=== PATIENT | male | born 1960 | race Caucasian/White ===

== ENCOUNTER → 2019-03-13 | Outpatient (CLI) | payer OTHER ==
[2019-03-13 16:52] LABS: African American GFR (CKD) >90 (>60 ml/min/1.73 sqM); Anion Gap 7 mmol/L; Blood Urea Nitrogen 15 mg/dL (9-20); Carbon Dioxide 26 mmol/L (22-30); Chloride 111 mmol/L (98-107); Sodium 144 mmol/L (137-145)
[2019-03-13 17:10] LABS: Basophils # (A) 0.1 k/uL (0-0.2); Basophils % (A) 1 %; Eosinophils # (A) 0.2 k/uL (0-0.7); Eosinophils % (A) 3 %; HCT 42.2 % (39.0-53.0); HGB 13.5 gm/dL (13.0-17.5); Lymphocytes # (A) 0.9 k/uL (1.0-4.8); Lymphocytes % (A) 14 %; MCH 34.4 pg (25.0-35.0); MCHC 31.9 g/dL (31.0-37.0); MCV 107.9 fL (80.0-100.0); Macrocytosis Moderate; Mean Platelet Volume 7.9; Monocytes # (A) 0.4 k/uL (0-1.0); Monocytes % (A) 6 %; Neutrophils # (A) 5.2 k/uL (1.3-7.7); Neutrophils % (A) 76 %; Platelet Count 179 k/uL (150-450); RBC 3.91 m/uL (4.30-5.90); RDW 13.5 % (11.5-15.5); WBC 6.8 k/uL (3.8-10.6)
== END | disposition home or self-care (01) ==
LOC: LABPAT 16:08
PROVIDERS: ATTEND Surgery
DX: Z01.812 Encounter for preprocedural laboratory examination (principal); I74.3 Embolism and thrombosis of arteries of the lower extremities
CPT/HCPCS: 36415; 80051; 82565; 84520; 85025

== ENCOUNTER → 2019-03-23 | Day surgery (SDC) | payer OTHER ==
[2019-03-16 10:59] VITALS: BMI 23.5
[~2019-03-23] MED LIST: IOPAMIDOL-250 100ML BTL INTRAARTER ONE; LIDOCAINE 1% INJ 10MG/ML (20 ML MDV) SQ ONE; MIDAZOLAM (PF) 2 MG/2 ML VIAL IVP ONE; NICOTINE 21MG/24HR PATCH TRANSDERM STA; SODIUM CHLORIDE 0.9% 1,000 ML in EMPTY BAG 1 BAG IV ONE; fentaNYL (PF) 50 MCG/ML 2 ML AMP IV ONE
[2019-03-23 11:05] VITALS: TEMP 97.8
[2019-03-23 15:05] VITALS: RESP 18
--- NOTE | 2019-03-23 15:50 | IR ---
EXAMINATION TYPE: IR angio abdominal w runoff DATE OF EXAM: 03/23/2019 COMPARISON: NONE HISTORY: Fluoroscopy time. Fluoroscopy was provided to the referring clinician. 1.8 minutes of fluoroscopy provided.
--- NOTE | 2019-03-23 17:07 | P.OP ---
Date of Procedure: 03/23/19 Description of Procedure: Preoperative diagnosis: Disabling claudication of bilateral lower extremities with rest pain [place] classification 4 Postop diagnosis: Same plus Aortic occlusion Procedure: Aortogram with bilateral lower extremity runoffs via left brachial artery access under ultrasound guidance Surgeon: Gordon Anesthesia: Moderate sedation times 19 mins Estimated blood loss: 5cc Complications: none Condition: stable Findings: Aorta is patent to the renal arteries then abrupt occlusion with reconstitution at the femoral arteries bilaterally. Operative narrative: After written informed consent was obtained the patient all risks benefits competitions were described the patient is brought to the [facility] and laid in a supine position. The area of the left arm was prepped and draped in the usual sterile fashion. Local anesthesia with moderate sedation was performed with continuous pulse ox monitoring and EKG monitoring. Utilizing ultrasound the left brachial artery was visualized and shown to be patent without any significant plaque. Utilizing a multipurpose needle under ul trasound guidance the artery was accessed. Guidewire was placed followed by 5- [place] sheath. 035 Glidewire was then placed into the aorta followed by pigtail catheter. Angiogram was then obtained of the aorta, iliacs and femoral arteries. Once completed all guidewires, catheters and sheaths were removed and pressure was placed for hemostasis. Patient tolerated procedure well was sent to PACU for recovery
[2019-03-23 17:11] VITALS: BP 135/67; PULSE 54
== END ==
LOC: CATHCVL 10:32
PROVIDERS: ATTEND Surgery
DX: I70.223 Atherosclerosis of native arteries of extremities with rest pain, bilateral legs (principal); I70.0 Atherosclerosis of aorta; I10 Essential (primary) hypertension; F17.210 Nicotine dependence, cigarettes, uncomplicated; Z82.49 Family history of ischemic heart disease and other diseases of the circulatory system; Z79.891 Long term (current) use of opiate analgesic; Z79.51 Long term (current) use of inhaled steroids; Z79.899 Other long term (current) drug therapy
CPT/HCPCS: 36200; 75625; 75716; 76937; C1769 ×4; C1894; S4990; J2001; J3010; Q9966; J2250

== ENCOUNTER → 2019-05-18 | Outpatient (CLI) | payer OTHER ==
[2019-05-18 11:04] LABS: Basophils # (A) 0.1 k/uL (0-0.2); Basophils % (A) 1 %; Eosinophils # (A) 0.2 k/uL (0-0.7); Eosinophils % (A) 3 %; HCT 48.3 % (39.0-53.0); HGB 15.9 gm/dL (13.0-17.5); Lymphocytes # (A) 0.9 k/uL (1.0-4.8); Lymphocytes % (A) 15 %; MCH 35.5 pg (25.0-35.0); MCHC 32.9 g/dL (31.0-37.0); Macrocytosis Moderate; Mean Platelet Volume 7.4; Monocytes # (A) 0.4 k/uL (0-1.0); Monocytes % (A) 6 %; Neutrophils # (A) 4.4 k/uL (1.3-7.7); Neutrophils % (A) 72 %; Platelet Count 169 k/uL (150-450); RBC 4.47 m/uL (4.30-5.90); RDW 12.7 % (11.5-15.5)
[2019-05-18 11:17] LABS: African American GFR (CKD) >90 (>60 ml/min/1.73 sqM); Anion Gap 7 mmol/L; Blood Urea Nitrogen 11 mg/dL (9-20); Carbon Dioxide 29 mmol/L (22-30); Chloride 102 mmol/L (98-107); Potassium 4.9 mmol/L (3.5-5.1); Sodium 138 mmol/L (137-145)
== END | disposition home or self-care (01) ==
LOC: LABPAT 10:16
PROVIDERS: ATTEND Surgery
DX: Z01.812 Encounter for preprocedural laboratory examination (principal); I74.10 Embolism and thrombosis of unspecified parts of aorta
CPT/HCPCS: 36415; 80051; 82565; 84520; 85025

== ENCOUNTER 2019-05-25 06:44 | Inpatient (IN) | payer OTHER ==
[2019-05-21 13:06] VITALS: BMI 23.5
[~2019-05-25 06:44] MED LIST changes: +HYDROmorphone 0.5 MG/0.5 ML SYRINGE IVP PRN; -IOPAMIDOL-250 100ML BTL INTRAARTER ONE; -LIDOCAINE 1% INJ 10MG/ML (20 ML MDV) SQ ONE; -MIDAZOLAM (PF) 2 MG/2 ML VIAL IVP ONE; +MIDAZOLAM 2 MG/2 ML VIAL IV PRN; -NICOTINE 21MG/24HR PATCH TRANSDERM STA; +ONDANSETRON 4 MG/2 ML VIAL IVP ONE; +SCOPOLAMINE 1.5MG/72HR PATCH TRANSDERM ONE; -SODIUM CHLORIDE 0.9% 1,000 ML in EMPTY BAG 1 BAG IV ONE; -fentaNYL (PF) 50 MCG/ML 2 ML AMP IV ONE
[2019-05-25] MEDS: LACTATED RINGERS 1,000 ML IV SCH ×6 (07:00→23:37)
[2019-05-25] MEDS ORDERED: LIDOCAINE 1% 20 ML VIAL (10MG/ML) FOR IV START INTRADERMA ONE (07:00)
[2019-05-25] MEDS: DEXAMETHASONE SOD PHOSPHATE 10 MG/ML 1 ML VIAL IV ONE ×2 (07:05→15:59)
[2019-05-25 07:29] LABS: Prothrombin Time 10.7 sec (9.0-12.0)
--- NOTE | 2019-05-25 07:29 | P.GSHP ---
History of Present Illness H&P Date: 05/25/19 Chief Complaint: Bilateral lower extremity pain 59-year-old gentleman with history of peripheral arterial disease, claudication and rest pain with history of arterial Doppler demonstrating ABIs of less than 0.4 as well as an aortogram with runoff demonstrating aortic occlusion just distal to the renal arteries presents to the hospital for elective aortobifemoral bypass. He denies any fevers, chills, chest pain or shortness of breath. - Review of Systems All systems: negative (What is mentioned in the HPI past medical history) Past Medical History Past Medical History: COPD, Hypertension, Vascular Disorder Additional Past Medical History / Comment(s): hernia History of Any Multi-Drug Resistant Organisms: None Reported Past Surgical History: No Surgical Hx Reported Additional Past Anesthesia/Blood Transfusion Reaction / Comment(s): has never had anesthesia Smoking Status: Former smoker - Past Family History Mother Additional Family Medical History / Comment(s): varicose veins Medications and Allergies Home Medications Medication Instructions Recorded Confirmed Type Atenolol/Chlorthalidone 1 each PO 1200 03/16/19 05/25/19 History [Atenolol-Chlorthalidone 100-25] HYDROcodone/APAP 7.5-325MG [[place] 1 tab PO BID 03/16/19 05/25/19 History 7.5-325] Lisinopril [Zestril] 40 mg PO 1200 03/16/19 05/25/19 History Ondansetron [Zofran] 4 mg PO DAILY PRN 05/21/19 05/25/19 History Allergies Allergy/AdvReac Type Severity Reaction Status Date / Time No Known Allergies Allergy Verified 05/25/19 06:55 Surgical - Exam Vital Signs Temp Pulse Resp BP Pulse Ox 97.9 F 46 L 18 173/82 100 05/25/19 07:03 05/25/19 07:03 05/25/19 07:03 05/25/19 07:03 05/25/19 07:03 Nonpalpable femoral, popliteal, DP or PT pulses - General well developed, well nourished, moderate pain - Eyes PERRL, normal ocular movement - ENT normal pinna, normal nares - Respiratory clear to auscultation - Cardiovascular Rhythm: regular - Abdomen Abdomen: soft, non tender - Integumentary no rash - Neurologic normal coordination - Psychiatric oriented to time, oriented to person, oriented to place Assessment and Plan Assessment: #1 aortoiliac occlusion #2 severe peripheral arterial disease [place] classification 4 #3 tobacco abuse Plan: To the OR for aortobifemoral bypass.
[2019-05-25] MEDS ORDERED: NALBUPHINE 10 MG/ML (1 ML AMP) IV PRN (08:49)
[2019-05-25] MEDS ORDERED: NALOXONE 0.4 MG/ML 1 ML VIAL IV PRN (08:49)
--- NOTE | 2019-05-25 08:52 | P.ANPRN ---
Procedure Note - Anesthesia - Invasive Line Right Central Line Time Out Performed: Yes Date of Procedure: 05/25/19 Time of Procedure: 07:47 Location of Patient Procedure: PreOp Preparation: Sterile Prep, Sterile Dressing Ultrasound Used: Yes Purpose - Visualization and Identification of Vasculature: Yes Needle Guage: 18 Image Stored and Saved: Yes Narrative: Central line placement per sterile protocol utilized. Right Arterial Line Time Out Performed: Yes Date of Procedure: 05/25/19 Time of Procedure: 07:39 Location of Patient Procedure: PreOp Preparation: Sterile Prep, Sterile Dressing Arterial Line Location: Radial Ultrasound Used: No Purpose - Visualization and Identification of Vasculature: No Needle Guage: 20 Image Stored and Saved: No Narrative: Radial arterial line right side placed under sterile conditions
[2019-05-25] MEDS ORDERED: GELATIN SPONGE,ABSORB (LARGE) 1 EACH SPONGE TOPICAL ONE (09:31)
[2019-05-25] MEDS ORDERED: THROMBIN (BOVINE) 5,000 UNIT VIAL TOPICAL ONE ×5 (09:35→12:48)
[2019-05-25] MEDS ORDERED: LACTATED RINGERS 1,000 ML IV ONE ×6 (10:38→17:15)
[2019-05-25] MEDS ORDERED: GELATIN SPONGE,ABSORB (SMALL) 1 EACH SPONGE TOPICAL ONE ×2 (12:48)
[2019-05-25] MEDS: ROPIVACAINE 400 MG, HYDROMORPHONE (PF) 5 MG in SODIUM CHLORIDE 0.9% 170 ML EPIDURAL PRN (14:23)
--- NOTE | 2019-05-25 14:28 | P.OP ---
Description of Procedure: Preoperative diagnosis: [place] classification 4 with Aortoiliac occlusion Postoperative diagnosis: Same Procedure: Preoperative diagnosis: Postoperative diagnosis: Aortobifemoral artery bypass Surgeon: Gordon Mena.: [place] Anesthesia: GETA EBL: 1000 cc Transfusion: 700 cc cell saver IVF: See anesthesia records Urine output: The anesthesia records Complications: None Condition: stable with multiphasic DP and PT signals bilaterally Indication for procedure: 59-year-old gentleman who initially presented to the office secondary to lower extremity pain with ambulation and at rest underwent arterial Doppler demonstrating ABIs less than 0.4 bilaterally. On imaging aorta was occluded just distal to the renal arteries. Patient presents today for elective aortobifemoral bypass. Operative narrative: After written informed consent was obtained the patient all risks benefits and competitions were described the patient was brought to the operative suite and laid in a supine position. The area from the nipples to the toes were prepped and draped in usual sterile fashion after appropriate ane sthetic was performed per the anesthesiologist. A timeout was performed in normal fashion. Antibiotics were administered prior to incision. Oblique incisions at the bilateral groins were then created with a 10 blade scalpel and dissection was carried down to the common femoral sheath. The sheath was then incised and the common femoral, superficial femoral and profundus femoris arteries were dissected free and controlled with vessel loops. Once controlled attention was then placed to the abdominal incision. Midline incision was then created with a 10 blade scalpel from the xiphoid to the suprapubic region and dissection was carried down with electrocautery to the fascia fascia was then incised and the abdomen was entered once the peritoneum was incised. Abdomen was then interrogated. Liver was within normal limits without any signs of disease. Stomach was palpated and NG tube was in appropriate position. Small bowel was then placed in the right upper quadrant after the Omni retractor was positioned in normal fashion. The retroperitoneum was then exposed and the aorta was dissected free with electrocautery up to the renal vein. Renal vein was located and retracted cephalad to allow for dissection around the aorta just at the infrarenal aspect. Circumferential dissection was then carried around the aorta and a umbilical tape was placed. Continue dissection was then carried down to the bifurcation and both iliac arteries were located and dissected free and controlled with vessel loops. Dissection was then carried over the iliac arteries bilaterally just under the retroperitoneal reflection under the ureters bilaterally and umbilical tape was placed from the abdominal incision to the bilateral groin incisions. Patient was then administered heparin and followed with serial ACTs for appropriate heparinization. After ACT was greater than 200 the aorta was clamped at the infrarenal aspect and arteriotomy was created with 11 blade scalpel and extended with Pott Douglas scissors. A large amount thrombus was encountered which was removed from the aorta. Inflow was assessed and was pulsatile after removing thrombus from the juxtarenal aspect of the aorta. The aorta was then cut to allow for end to end anastomosis. A 16 x 8 mm [place] bifurcated graft was chosen and the aortic aspect was spatulated end to end anastomosis was created with 3-0 Prolene suture in a running fashion. Once completed and flow was released demonstrating good pulsatile flow within the graft. Gelfoam was then placed at the anastomosis. Both iliac limbs were then tied with the umbilical tape and pulled to each groin incision. Control was then obtained of the femoral arteries bilaterally and arteriotomy was created and extended with Pott Douglas scissors. Femoral endarterectomy was then performed removing large amount of plaque from the femoral arteries extending to the superficial femoral artery bilaterally. Once plaque was removed the area was irrigated with saline. Distal flaps were tacked with 7-0 Prolene suture to prevent any dissection. The graft was then spatulated and end-to-side anastomosis was created with 6-0 Prolene suture bilaterally. Prior to last sutures being placed the outflow was released demonstrating good back bleeding from the left superficial femoral and profundus arteries as well as the right superficial femoral and profundus arteries. Final sutures were then secured after flushing of the aortic graft. Hemostasis was assured with Gelfoam and thrombin. Once hemostatic incisions were then closed in a multilayer fashion. Attention was then placed back to the abdominal incision which was copiously irrigated with antibiotic solution. Hemostasis was assured wiGelfoam and thrombin as well as Tisseel. The existing aortic stump was closed with a 3-0 Prolene suture in a running fashion. The retroperitoneum was then closed with 2-0 Vicryl suture in a running fashion. The intra-abdominal contents were once again interrogated without any evidence of injury. The fascia was then closed with 2-0 PDS suture in a running fashion 2. The skin was closed with hussein. Skin was then cleansed and dressed with Prevena wound vacs. The patient tolerated the procedure well and had multiphasic signal at the DP and PT bilaterally. Patient was then sent to PACU for recovery.
[2019-05-25] MEDS ORDERED: PHENYLEPHRINE 40 MG in SODIUM CHLORIDE 0.9% 250 ML IV SCH (14:45)
[2019-05-25 15:50] LABS: Glucose,Whole Blood 140 mg/dL (75-99)
[2019-05-25] MEDS: ONDANSETRON 4 MG/2 ML VIAL IVP PRN (16:30)
[2019-05-25] MEDS ORDERED: NOREPINEPHRINE 8 MG in SODIUM CHLORIDE 0.9% 250 ML IV SCH (16:30)
--- NOTE | 2019-05-25 16:45 | P.CNPUL ---
History of Present Illness Consult date: 05/25/19 Requesting physician: Paramjit Leyva Reason for consult: other Chief complaint: Claudication, peripheral arterial disease History of present illness: This 59-year-old white male patient of Dr. Cervantes, with past history of COPD, hypertension, peripheral arterial disease, along history of smoking, patient carries a 45 years of smoking history up to 3 packs a day, currently cut back to half a pack daily, who has been experiencing pain and claudication in his lower extremities and was evaluated by vascular surgery. Return Doppler demonstrated aortic occlusion distal to the renal arteries, no surgical intervention was recommended. Today on 05/2019 patient presents for elective aorto bifemoral artery bypass by Dr. Leyva. Patient is seen in the postoperative period in the intensive care unit, he is awake and alert, in no acute distress, other than some mild to moderate nausea, denies any acute distress, no difficulty breathing, currently on 2 L of oxygen with a pulse ox of 99%, afebrile, sinus bradycardia with a rate of 49 BPM, and currently hypotensive with systolic in the 80s and diastolic in the 50s. Mid abdominal incision and bilateral groin incisions are clean dry and intact, covered with the surgical dressing, there is a wound VAC in place. Patient has a epidural catheter in place, and epidural in the form of ropivacaine and Dilaudid infusing. Review of Systems All systems: negative Constitutional: Denies chills, Denies fever Eyes: denies blurred vision, denies pain Ears, nose, mouth and throat: Denies headache, Denies sore throat Cardiovascular: Denies chest pain, Denies shortness of breath Respiratory: Denies cough Gastrointestinal: Denies abdominal pain, Denies diarrhea, Denies nausea, Denies vomiting Musculoskeletal: Denies myalgias Integumentary: Denies pruritus, Denies rash Neurological: Denies numbness, Denies weakness Psychiatric: Denies anxiety, Denies depression Endocrine: Denies fatigue, Denies weight change Past Medical History Past Medical History: COPD, Hypertension, Vascular Disorder Additional Past Medical History / Comment(s): hernia History of Any Multi-Drug Resistant Organisms: None Reported Past Surgical History: No Surgical Hx Reported Additional Past Anesthesia/Blood Transfusion Reaction / Comment(s): has never had anesthesia Smoking Status: Former smoker - Past Family History Mother Additional Family Medical History / Comment(s): varicose veins Medications and Allergies Home Medications Medication Instructions Recorded Confirmed Type Atenolol/Chlorthalidone 1 each PO 1200 03/16/19 05/25/19 History [Atenolol-Chlorthalidone 100-25] HYDROcodone/APAP 7.5-325MG [[place] 1 tab PO BID 03/16/19 05/25/19 History 7.5-325] Lisinopril [Zestril] 40 mg PO 1200 03/16/19 05/25/19 History Ondansetron [Zofran] 4 mg PO DAILY PRN 05/21/19 05/25/19 History Allergies Allergy/AdvReac Type Severity Reaction Status Date / Time No Known Allergies Allergy Verified 05/25/19 06:55 Physical Exam Vitals: Vital Signs Temp Pulse Pulse Resp BP BP Pulse Ox 05/25/19 15:18 49 L 16 103/56 98/52 99 05/25/19 15:03 45 L 16 113/60 103/55 100 05/25/19 14:48 56 L 16 108/58 107/60 98 05/25/19 14:33 66 16 94/62 82/50 98 05/25/19 14:18 97 F L 73 106/70 98 05/25/19 08:02 55 L 20 117/71 100 05/25/19 07:33 55 L 20 125/76 100 05/25/19 07:10 47 L 18 159/89 05/25/19 07:03 97.9 F 46 L 18 173/82 100 Intake and Output 05/25/19 05/25/19 05/25/19 06:59 14:59 22:59 Intake Total 4750 Output Total 1610 30 Balance 3140 -30 Intake: IV 4750 Output: Urine 410 30 Estimated Blood Loss 1200 Other: Weight 63.049 kg GENERAL EXAM: Alert, pleasant, 59-year-old white male, comfortable in no apparent distress. HEAD: Normocephalic/atraumatic. EYES: Normal reaction of pupils, equal size. Conjunctiva pink, sclera white. NOSE: Clear with pink turbinates. THROAT: No erythema or exudates. NECK: No masses, no JVD, no thyroid enlargement, no adenopathy. CHEST: No chest wall deformity. Symmetrical expansion. LUNGS: Equal air entry with no crackles, wheeze, rhonchi or dullness. CVS: Regular rate and rhythm, normal S1 and S2, no gallops, no murmurs, no rubs ABDOMEN: Soft, nontender. No hepatosplenomegaly, normal bowel sounds, no guarding or rigidity. Mid abdominal incision and bilateral groin incisions clean dry and intact, covered with surgical dressings, wound VAC is in place EXTREMITIES: No clubbing, no edema, no cyanosis, 2+ pulses and upper and lower extremities. MUSCULOSKELETAL: Muscle strength and tone normal. SPINE: No scoliosis or deformity SKIN: No rashes CENTRAL NERVOUS SYSTEM: Alert and oriented -3. No focal deficits, tone is normal in all 4 extremities. PSYCHIATRIC: Alert and oriented -3. Appropriate affect. Intact judgment and insight. Results - Laboratory Findings PT/INR, D-dimer PT 10.7 sec (9.0-12.0) 05/25/19 07:04 INR 1.0 (<1.2) 05/25/19 07:04 Abnormal lab findings: Abnormal Labs 05/25/19 15:48 POC Glucose (mg/dL) 140 H Assessment and Plan Plan: Assessment: #1. Severe peripheral arterial disease, with claudication status post aortobifemoral artery bypass, postoperative day 0 #2. Chronic and ongoing history of smoking, patient carries a 45 years of smoking history, up to 3 packs a day, currently down to half a pack a day #3. Essential hypertension #4. COPD Plan: We'll increase IV fluids to 75 ML per hour, may use levophed for blood pressure support. We will order Zofran for postoperative nausea. Close hemodynamic monitoring, patient in sinus mechanism, bradycardic, and hypotensive, but awake and alert, and clinically asymptomatic, urine output is adequate. He is nothing by mouth per vascular surgery, incisions clean dry and intact, distal pulses are intact. Denies any difficulty breathing. Antibiotics per vascular surgery recommendations. Epidural is in place for pain control. Patient requested nicotine patch. We'll obtain blood work in the morning. We will continue to closely follow I performed a history & physical examination of the patient and discussed their management with my nurse practitioner, Angela Barron. I reviewed the nurse practitioner's note and agree with the documented findings and plan of care. Lung sounds are positive for clear breath sounds. The findings and the impression was discussed with the patient. I attest to the documentation by the nurse practitioner. Time with Patient: Greater than 30
[2019-05-25 17:15] LABS: HCT 24.6 % (39.0-53.0); MCH 35.2 pg (25.0-35.0); MCHC 32.4 g/dL (31.0-37.0); MCV 108.8 fL (80.0-100.0); Macrocytosis Moderate; Mean Platelet Volume 7.5; Platelet Count 112 k/uL (150-450); RBC 2.27 m/uL (4.30-5.90); RDW 12.6 % (11.5-15.5); WBC 5.1 k/uL (3.8-10.6)
[2019-05-25 17:23] LABS: ALT 71 U/L (21-72); AST 58 U/L (17-59); African American GFR (CKD) >90 (>60 ml/min/1.73 sqM); Albumin 2.3 g/dL (3.5-5.0); Alkaline Phosphatase 22 U/L (38-126); Anion Gap 4 mmol/L; Blood Urea Nitrogen 14 mg/dL (9-20); Calcium 7.5 mg/dL (8.4-10.2); Carbon Dioxide 21 mmol/L (22-30); Chloride 113 mmol/L (98-107); Glucose 161 mg/dL (74-99); Magnesium 1.2 mg/dL (1.6-2.3); Potassium 4.2 mmol/L (3.5-5.1); Sodium 138 mmol/L (137-145); Total Protein 4.3 g/dL (6.3-8.2)
[2019-05-25] MEDS: DOPamine DRIP 800 MG in WATER FOR INJECTION 1 250ML.BAG IV SCH (17:24)
[2019-05-25] MEDS: MAGNESIUM SULFATE-D5W PMX 1 GM in DEXTROSE/WATER 1 100ML.BAG IVPB SCH ×3 (18:27→23:41)
[2019-05-26] MEDS: ONDANSETRON 4 MG/2 ML VIAL IVP PRN ×2 (03:09→12:57)
[2019-05-26 06:11] LABS: HCT 35.9 % (39.0-53.0); MCH 36.4 pg (25.0-35.0); MCHC 34.3 g/dL (31.0-37.0); MCV 106.1 fL (80.0-100.0); Macrocytosis Slight; Mean Platelet Volume 7.6; Platelet Count 152 k/uL (150-450); RBC 3.38 m/uL (4.30-5.90); RDW 12.5 % (11.5-15.5); WBC 8.3 k/uL (3.8-10.6)
[2019-05-26 06:23] LABS: African American GFR (CKD) >90 (>60 ml/min/1.73 sqM); Anion Gap 6 mmol/L; Blood Urea Nitrogen 15 mg/dL (9-20); Calcium 8.4 mg/dL (8.4-10.2); Carbon Dioxide 27 mmol/L (22-30); Chloride 106 mmol/L (98-107); Glucose 99 mg/dL (74-99); Magnesium 1.8 mg/dL (1.6-2.3); Potassium 4.3 mmol/L (3.5-5.1); Sodium 139 mmol/L (137-145)
[2019-05-26] MEDS ORDERED: Magnesium Replacement Protocol 1 EACH MISC MISCELLANE PRN (06:38)
[2019-05-26 07:00] LABS: HGB 12.3 gm/dL (13.0-17.5)
[2019-05-26] MEDS: MAGNESIUM SULFATE-D5W PMX 1 GM in DEXTROSE/WATER 1 100ML.BAG IVPB SCH ×2 (07:01→10:06)
[2019-05-26] MEDS: LACTATED RINGERS 1,000 ML IV SCH ×2 (07:06→23:59)
--- NOTE | 2019-05-26 09:22 | P.PN ---
Subjective Progress Note Date: 05/26/19 This 59-year-old white male patient of Dr. Cervantes, with past history of COPD, hypertension, peripheral arterial disease, along history of smoking, patient carries a 45 years of smoking history up to 3 packs a day, currently cut back to half a pack daily, who has been experiencing pain and claudication in his lower extremities and was evaluated by vascular surgery. Return Doppler demonstrated aortic occlusion distal to the renal arteries, no surgical intervention was recommended. Today on 05/2019 patient presents for elective aorto bifemoral artery bypass by Dr. Leyva. Patient is seen in the postoperative period in the intensive care unit, he is awake and alert, in no acute distress, other than some mild to moderate nausea, denies any acute distress, no difficulty breathing, currently on 2 L of oxygen with a pulse ox of 99%, afebrile, sinus bradycardia with a rate of 49 BPM, and currently hypotensive with systolic in the 80s and diastolic in the 50s. Mid abdominal incision and bilateral groin incisions are clean dry and intact, covered with the surgical dressing, there is a wound VAC in place. Patient has a epidural catheter in place, and epidural in the form of ropivacaine and Dilaudid infusing. On today's evaluation of 05/26/2019 the patient is looking very well. He underwent aortobifem bypass surgery and the patient has currently postop day #1. Hemodynamically stable. The patient was having sinus bradycardia yesterday and his heart rate at one point dropped as low as low 40s. At that point, I put him on a dopamine infusion which is currently running at 8 g per KG per minute. His most recent BP is 95/39. His heart rate is in the mid 60s and he is sinus. His extremities are warm. He has Doppler signals in all 4 extremities bilate rally. No significant numbness or pain or tingling in his legs bilaterally. Abdominal wound is dry clean and intact. The patient is on room air oxygen. No significant cough or sputum production or chest tightness or wheezing. He has an epidural catheter with Dilaudid and bupivacaine which is running at 80 mL an hour. Feeling slightly nauseous. However, he is requesting for food. He has a Cordis in his right IJ. Objective - Vital Signs Vital signs: Vital Signs Temp 97.5 F L 11/09/19 08:00 Pulse 65 05/26/19 08:15 Resp 19 05/26/19 08:15 BP 144/73 05/26/19 08:15 Pulse Ox 93 L 05/26/19 08:15 Intake & Output 05/25/19 05/26/19 05/26/19 18:59 06:59 18:59 Intake Total 5975.551 1993.899 263.55 Output Total 1790 625 100 Balance 4185.551 1368.899 163.55 Weight 63.049 kg 72.4 kg Intake: IV 4756 1746 125 .9 a line 6 21 Lactated Ringers 1,000 ml 1375 125 @ 125 mls/hr IV .Q8H TRAE Rx#:[id number] Magnesium Sulfate-D5w Pmx 300 1 gm In Dextrose/Water 1 100ml.bag @ 100 mls/hr IVPB Q1H TRAE Rx#: [id number] ceFAZolin 2 gm In Sodium 50 Chloride 0.9% 50 ml @ 100 mls/hr IVPB Q8HR TRAE Rx# :[id number] Intake, IV Titration 1219.551 247.899 138.55 Amount DOPamine DRIP 800 mg In 18.128 72.899 138.55 Water For Injection 1 250ml.bag @ 5 MCG/KG/MIN 5.911 mls/hr IV .Q24H TRAE Rx#:[id number] Lactated Ringers 1,000 ml 150 75 @ 125 mls/hr IV .Q8H TRAE Rx#:[id number] Lactated Ringers 1,000 ml 1000 @ 999 mls/hr IV .Q1H1M ONE Rx#:[id number] Magnesium Sulfate-D5w Pmx 100 1 gm In Dextrose/Water 1 100ml.bag @ 100 mls/hr IVPB Q1H TRAE Rx#: [id number] Norepinephrine 8 mg In 1.423 Sodium Chloride 0.9% 250 ml @ 0.05 MCG/KG/MIN 6.1 mls/hr IV .Q24H TRAE Rx#: [id number] ceFAZolin 2 gm In Sodium 50 Chloride 0.9% 50 ml @ 100 mls/hr IVPB Q8HR TRAE Rx# :[id number] Output: Urine 590 625 100 Estimated Blood Loss 1200 Other: Voiding Method Indwelling Catheter Indwelling Catheter ABP, PAP, CO, CI - Last Documented Arterial Blood Pressure 108/55 - Exam GENERAL EXAM: Alert, pleasant, 59-year-old white male, comfortable in no apparent distress. HEAD: Normocephalic/atraumatic. EYES: Normal reaction of pupils, equal size. Conjunctiva pink, sclera white. NOSE: Clear with pink turbinates. THROAT: No erythema or exudates. NECK: No masses, no JVD, no thyroid enlargement, no adenopathy. CHEST: No chest wall deformity. Symmetrical expansion. LUNGS: Equal air entry with no crackles, wheeze, rhonchi or dullness. CVS: Regular rate and rhythm, normal S1 and S2, no gallops, no murmurs, no rubs ABDOMEN: Soft, nontender. No hepatosplenomegaly, normal bowel sounds, no guarding or rigidity. Mid abdominal incision and bilateral groin incisions clean dry and intact, covered with surgical dressings, wound VAC is in place EXTREMITIES: No clubbing, no edema, no cyanosis, 2+ pulses and upper and lower extremities. MUSCULOSKELETAL: Muscle strength and tone normal. SPINE: No scoliosis or deformity SKIN: No rashes CENTRAL NERVOUS SYSTEM: Alert and oriented -3. No focal deficits, tone is normal in all 4 extremities. PSYCHIATRIC: Alert and oriented -3. Appropriate affect. Intact judgment and insight. - Labs CBC & Chem 7: 05/26/19 05:46 05/26/19 05:46 Labs: Abnormal Lab Results - Last 24 Hours (Table) 05/25/19 05/25/19 05/25/19 Range/Units 15:48 17:00 17:00 RBC 2.27 L (4.30-5.90) m/uL Hgb 8.0 L D (13.0-17.5) gm/dL Hct 24.6 L (39.0-53.0) % MCV 108.8 H (80.0-100.0) fL MCH 35.2 H (25.0-35.0) pg Plt Count 112 L (150-450) k/uL Chloride 113 H (98-107) mmol/L Carbon Dioxide 21 L (22-30) mmol/L Glucose 161 H (74-99) mg/dL POC Glucose (mg/dL) 140 H (75-99) mg/dL Calcium 7.5 L (8.4-10.2) mg/dL Magnesium 1.2 L (1.6-2.3) mg/dL Alkaline Phosphatase 22 L (38-126) U/L Total Protein 4.3 L (6.3-8.2) g/dL Albumin 2.3 L (3.5-5.0) g/dL 05/26/19 Range/Units 05:46 RBC 3.38 L (4.30-5.90) m/uL Hgb 12.3 L D (13.0-17.5) gm/dL Hct 35.9 L (39.0-53.0) % MCV 106.1 H (80.0-100.0) fL MCH 36.4 H (25.0-35.0) pg Plt Count (150-450) k/uL Chloride (98-107) mmol/L Carbon Dioxide (22-30) mmol/L Glucose (74-99) mg/dL POC Glucose (mg/dL) (75-99) mg/dL Calcium (8.4-10.2) mg/dL Magnesium (1.6-2.3) mg/dL Alkaline Phosphatase (38-126) U/L Total Protein (6.3-8.2) g/dL Albumin (3.5-5.0) g/dL Assessment and Plan Plan: #1. Severe peripheral arterial disease, with claudication status post aortobifemoral artery bypass, postoperative day 1 #2. Chronic and ongoing history of smoking, patient carries a 45 years of smoking history, up to 3 packs a day, currently down to half a pack a day #3. Essential hypertension #4. COPD #5 sinus bradycardia currently on dopamine which also has assisted with his heart rate and blood pressure. Plan Patient is recovering extremely well. Surgical wound site is dry clean and intact. There is adequate Doppler signals in lower extremities bilaterally and there are no ischemic changes. Probably is some palpable pulses on and off that can be felt in his feet bilaterally. He is hemodynamically stable. Dopamine will be weaned off slowly. His sinus bradycardia has recovered. BP is under good control. He is receiving IV fluids at the rate of 125 mL an hour. He has adequate urine output. No altered mentation. No chest pain. No other significant events overnight. We'll continue to follow. Epidural management
--- NOTE | 2019-05-26 09:29 | P.PN ---
Progress Note - Text Progress Note Date: 05/26/19 Patient without complaints. Pain controlled. Denies leg weakness. Denies headache. Epidural @ 8 ml/hr VSS Back - epidural site clean and dry A/P POD #1 s/p aortobifemoral bypass - doing well
[2019-05-26] MEDS: NICOTINE 21MG/24HR PATCH TRANSDERM SCH (10:06)
[2019-05-26] MEDS: PANTOPRAZOLE 40 MG/10 ML VIAL IVP SCH (10:06)
[2019-05-26] MEDS: DOPamine DRIP 800 MG in WATER FOR INJECTION 1 250ML.BAG IV SCH (10:08)
[2019-05-26] MEDS: ROPIVACAINE 400 MG, HYDROMORPHONE (PF) 5 MG in SODIUM CHLORIDE 0.9% 170 ML EPIDURAL PRN (11:31)
[2019-05-26] MEDS: CHLORTHALIDONE 25 MG TAB PO SCH (12:56)
[2019-05-26] MEDS: LISINOPRIL 20 MG TAB PO SCH (12:56)
[2019-05-26] MEDS: ATENOLOL 50 MG TAB PO SCH (12:56)
--- NOTE | 2019-05-26 13:41 | PN ---
PROGRESS NOTE DATE OF SERVICE: 05/26/2019 CHIEF COMPLAINT: Aortoiliac occlusive disease. HISTORY OF PRESENT ILLNESS: This gentleman is doing well postoperatively. He has some discomfort, but very little. He is not having any chest pain, shortness of breath, nausea, etc. PHYSICAL EXAM: Head ears, eyes, nose, mouth, and throat are normal. Breath sounds are heard on both sides. Cardiac exam is normal and vital signs are normal. Dressing is dry. IMPRESSION: 1. Status post aortofemoral bypass. 2. Atherosclerotic cardiovascular disease. 3. Hypertension. 4. Chronic obstructive pulmonary disease. PLAN: No change in program and follow with vascular surgery. MMODL / IJN: [id number] /
--- NOTE | 2019-05-26 17:26 | CONS ---
CONSULTATION CHIEF COMPLAINT: PVOD. HISTORY OF PRESENT ILLNESS: This is another admission for this 59-year-old white male who is a very heavy smoker and has been identified as having distal aortic occlusive disease and is in for an elective aortofemoral bypass. REVIEW OF SYSTEMS: He has had no TIAs, CVAs, change in vision or hearing, cough, hemoptysis, etc. He does have COPD. He has a history of hypertension but no coronary artery disease. He has had no palpitations, syncope, angina, murmurs, rheumatic fever, etc. He has had no abdominal pain, nausea, vomiting, hematemesis, melena, hematochezia, jaundice, cirrhosis, renal failure, hematuria, frequency, urgency, dysuria, incontinence, BPH, nocturia, diabetes, etc. Past medical history, family history and personal and social histories reveal that he continues to smoke heavily and abuses alcohol as well. ALLERGIES: Not allergic to any medication. He has been on aspirin 81 mg a day, BuSpar 5 mg t.i.d. p.r.n., Vicodin 7.5 mg t.i.d. p.r.n., zolpidem 5 mg HS p.r.n., lisinopril 40 once a day, Qvar 80 one puff twice a day, Tenoretic 100/25 once a day, transderm nicotine patch, ibuprofen 800 mg q.i.d. p.r.n., omeprazole 20 mg once a day, vitamin D. The remainder of his history is unremarkable. PHYSICAL EXAMINATION: Blood pressure 120/80, pulse is 68 and regular, respirations 16 and he is afebrile. In general, he appeared to be slender and older than his stated age. Head, ears, eyes, nose, mouth, and throat were normal and carotids normal. Neck veins are not distended. Breath sounds are heard on both sides. He did have an increased AP diameter. Cardiac exam demonstrated normal sinus rhythm with no murmurs or extra sounds. Abdomen is soft and nontender without any masses or visceromegaly. Extremities were normal except for coolness to the lower legs and feet. Neurologically he is intact. IMPRESSION: 1. Aortoiliac occlusive disease. 2. Atherosclerotic cardiovascular disease. 3. Hypertension. 4. Chronic obstructive pulmonary disease. RECOMMENDATIONS: None. MMODL / IJN: [id number] /
--- NOTE | 2019-05-26 18:26 | P.PN ---
Subjective Progress Note Date: 05/26/19 Principal diagnosis: Aortic occlusion status post aortobifem bypass Patient seen and examined the bedside. Doing well overnight. His nausea has improved. He denies any pain in his lower extremities and states his discomfort in his toes has resolved. He denies any fevers, chills, chest pain or shortness of breath. He did have a bout of bradycardia which he was treated with dopamine. Currently he is doing well and his heart rate is in the 60s. Objective - Vital Signs Vital signs: Vital Signs Temp 98.2 F 05/26/19 16:00 Pulse 65 05/26/19 17:00 Resp 20 05/26/19 17:00 BP 100/60 05/26/19 17:00 Pulse Ox 92 L 05/26/19 17:00 Intake & Output 05/25/19 05/26/19 05/26/19 18:59 06:59 18:59 Intake Total 5975.551 6850.903 4441.148 Output Total 1790 625 620 Balance 4185.551 3938.980 8163.148 Weight 63.049 kg 72.4 kg Intake: IV 4756 1746 1475 .9 a line 6 21 Lactated Ringers 1,000 ml 1375 1375 @ 125 mls/hr IV .Q8H [facility] Rx#:[id number] Magnesium Sulfate-D5w Pmx 300 100 1 gm In Dextrose/Water 1 100ml.bag @ 100 mls/hr IVPB Q1H [facility] Rx#: [id number] ceFAZolin 2 gm In Sodium 50 Chloride 0.9% 50 ml @ 100 mls/hr IVPB Q8HR [facility] Rx# :[id number] Intake, IV Titration 1219.551 247.899 276.148 Amount DOPamine DRIP 800 mg In 18.128 72.899 214.681 Water For Injection 1 250ml.bag @ 5 MCG/KG/MIN 5.911 mls/hr IV .Q24H [facility] Rx#:[id number] Lactated Ringers 1,000 ml 150 75 @ 125 mls/hr IV .Q8H [facility] Rx#:[id number] Lactated Ringers 1,000 ml 1000 @ 999 mls/hr IV .Q1H1M ONE Rx#:[id number] Magnesium Sulfate-D5w Pmx 100 1 gm In Dextrose/Water 1 100ml.bag @ 100 mls/hr IVPB Q1H [facility] Rx#: [id number] Norepinephrine 8 mg In 1.423 Sodium Chloride 0.9% 250 ml @ 0.05 MCG/KG/MIN 6.1 mls/hr IV .Q24H [facility] Rx#: [id number] Ropivacaine 400 mg 61.467 Hydromorphone (Pf) 5 mg In Sodium Chloride 0.9% 170 ml @ Per Protocol EPIDURAL .Q0M PRN Rx#: [id number] ceFAZolin 2 gm In Sodium 50 Chloride 0.9% 50 ml @ 100 mls/hr IVPB Q8HR [facility] Rx# :[id number] Output: Urine 590 625 620 Estimated Blood Loss 1200 Other: Voiding Method Indwelling Catheter Indwelling Catheter Indwelling Catheter ABP, PAP, CO, CI - Last Documented Arterial Blood Pressure 108/55 - Exam Incision sites with prevena wound vacs in place. Palpable PT pulses. Multiphasic DP and PT signals. Lower extremities are warm. Minimal tenderness to palpation in the abdomen. - Labs CBC & Chem 7: 05/26/19 05:46 05/26/19 05:46 Labs: Abnormal Lab Results - Last 24 Hours (Table) 05/26/19 Range/Units 05:46 RBC 3.38 L (4.30-5.90) m/uL Hgb 12.3 L D (13.0-17.5) gm/dL Hct 35.9 L (39.0-53.0) % MCV 106.1 H (80.0-100.0) fL MCH 36.4 H (25.0-35.0) pg Assessment and Plan Assessment: #1 aortoiliac occlusion postop day 1 Aortobifemoral artery bypass #2 severe peripheral arterial disease Wolfe classification 4 #3 tobacco abuse #4 bradycardia resolved Plan: Continue current pain management. Increase activity patient is okay to transfer to the chair. Continue epidural catheter at this time. He is okay to start clear liquids and advance diet tomorrow.
[2019-05-26] MEDS: ALBUTEROL NEBULIZED 2.5 MG/3 ML INHALATION SCH (19:38)
[2019-05-27 05:46] LABS: Basophils % (A) 0 %; Eosinophils % (A) 1 %; HGB 10.2 gm/dL (13.0-17.5); Lymphocytes # (A) 0.7 k/uL (1.0-4.8); Lymphocytes % (A) 12 %; MCH 35.1 pg (25.0-35.0); MCHC 32.9 g/dL (31.0-37.0); MCV 106.9 fL (80.0-100.0); Macrocytosis Moderate; Mean Platelet Volume 7.4; Monocytes # (A) 0.3 k/uL (0-1.0); Monocytes % (A) 5 %; Neutrophils # (A) 4.9 k/uL (1.3-7.7); Neutrophils % (A) 80 %; Platelet Count 123 k/uL (150-450); RDW 12.5 % (11.5-15.5); WBC 6.1 k/uL (3.8-10.6)
[2019-05-27 05:57] LABS: African American GFR (CKD) >90 (>60 ml/min/1.73 sqM); Anion Gap 3 mmol/L; Blood Urea Nitrogen 13 mg/dL (9-20); Calcium 7.8 mg/dL (8.4-10.2); Carbon Dioxide 27 mmol/L (22-30); Chloride 104 mmol/L (98-107); Glucose 84 mg/dL (74-99); Magnesium 1.7 mg/dL (1.6-2.3); Potassium 4.2 mmol/L (3.5-5.1); Sodium 134 mmol/L (137-145)
[2019-05-27] MEDS ORDERED: SODIUM CHLORIDE 0.65% NASAL SPRAY 44 ML BTL NASAL PRN (06:42)
[2019-05-27] MEDS: LACTATED RINGERS 1,000 ML IV SCH ×2 (07:07→07:16)
[2019-05-27] MEDS: MAGNESIUM SULFATE-D5W PMX 1 GM in DEXTROSE/WATER 1 100ML.BAG IVPB SCH ×2 (07:08→10:54)
[2019-05-27] MEDS: ALBUTEROL NEBULIZED 2.5 MG/3 ML INHALATION SCH ×3 (07:44→20:42)
--- NOTE | 2019-05-27 08:15 | P.PN ---
Subjective Progress Note Date: 05/27/19 This 59-year-old white male patient of Dr. Cervantes, with past history of COPD, hypertension, peripheral arterial disease, along history of smoking, patient carries a 45 years of smoking history up to 3 packs a day, currently cut back to half a pack daily, who has been experiencing pain and claudication in his lower extremities and was evaluated by vascular surgery. Return Doppler demonstrated aortic occlusion distal to the renal arteries, no surgical intervention was recommended. Today on 05/2019 patient presents for elective aorto bifemoral artery bypass by Dr. Leyva. Patient is seen in the postoperative period in the intensive care unit, he is awake and alert, in no acute distress, other than some mild to moderate nausea, denies any acute distress, no difficulty breathing, currently on 2 L of oxygen with a pulse ox of 99%, afebrile, sinus bradycardia with a rate of 49 BPM, and currently hypotensive with systolic in the 80s and diastolic in the 50s. Mid abdominal incision and bilateral groin incisions are clean dry and intact, covered with the surgical dressing, there is a wound VAC in place. Patient has a epidural catheter in place, and epidural in the form of ropivacaine and Dilaudid infusing. On today's evaluation of 05/26/2019 the patient is looking very well. He underwent aortobifem bypass surgery and the patient has currently postop day #1. Hemodynamically stable. The patient was having sinus bradycardia yesterday and his heart rate at one point dropped as low as low 40s. At that point, I put him on a dopamine infusion which is currently running at 8 g per KG per minute. His most recent BP is 95/39. His heart rate is in the mid 60s and he is sinus. His extremities are warm. He has Doppler signals in all 4 extremities bilate rally. No significant numbness or pain or tingling in his legs bilaterally. Abdominal wound is dry clean and intact. The patient is on room air oxygen. No significant cough or sputum production or chest tightness or wheezing. He has an epidural catheter with Dilaudid and bupivacaine which is running at 80 mL an hour. Feeling slightly nauseous. However, he is requesting for food. He has a Cordis in his right IJ. On today's evaluation of 05/27/2019, the patient has no specific complaints. The blood pressure is under good control. The patient is receiving lactated Ringer at the rate of 1 25 mL an hour. Heart is a sinus and it's in the mid 70s. The patient was taken off the dopamine since midnight. Adequate urine output. Adequate pulses in lower extremities in terms of Doppler signal and some palpable pulses can be also felt. Abdomen is soft. There are bowel sounds. He is passing some gas. No bowel movement yet. He has a congested cough. Limited amount of sputum production. He is on oxygen at 2 L and is pulse oxing 94%. No other significant events overnight. No abdominal pain. Epidural is still running at 6 cc an hour. Objective - Vital Signs Vital signs: Vital Signs Temp 99 F 05/27/19 04:00 Pulse 66 05/27/19 07:55 Resp 18 05/27/19 07:00 BP 106/67 05/27/19 07:00 Pulse Ox 97 05/27/19 07:00 Intake & Output 05/26/19 05/27/19 05/27/19 18:59 06:59 18:59 Intake Total 2061.148 1404.278 250 Output Total 730 1465 120 Balance 1331.148 -60.722 130 Weight 72.8 kg Intake: IV 1725 1375 250 Lactated Ringers 1,000 ml 1625 1375 250 @ 125 mls/hr IV .Q8H [facility] Rx#:[id number] Magnesium Sulfate-D5w Pmx 100 1 gm In Dextrose/Water 1 100ml.bag @ 100 mls/hr IVPB Q1H [facility] Rx#: [id number] Intake, IV Titration 276.148 29.278 Amount DOPamine DRIP 800 mg In 214.681 29.278 Water For Injection 1 250ml.bag @ 5 MCG/KG/MIN 5.911 mls/hr IV .Q24H [facility] Rx#:[id number] Ropivacaine 400 mg 61.467 Hydromorphone (Pf) 5 mg In Sodium Chloride 0.9% 170 ml @ Per Protocol EPIDURAL .Q0M PRN Rx#: [id number] Oral 60 Output: Urine 730 1465 120 Other: Voiding Method Indwelling Catheter Indwelling Catheter ABP, PAP, CO, CI - Last Documented Arterial Blood Pressure 108/55 - Exam GENERAL EXAM: Alert, pleasant, 59-year-old white male, comfortable in no apparent distress. HEAD: Normocephalic/atraumatic. EYES: Normal reaction of pupils, equal size. Conjunctiva pink, sclera white. NOSE: Clear with pink turbinates. THROAT: No erythema or exudates. NECK: No masses, no JVD, no thyroid enlargement, no adenopathy. CHEST: No chest wall deformity. Symmetrical expansion. LUNGS: Equal air entry with no crackles, wheeze, rhonchi or dullness. CVS: Regular rate and rhythm, normal S1 and S2, no gallops, no murmurs, no rubs ABDOMEN: Soft, nontender. No hepatosplenomegaly, normal bowel sounds, no guarding or rigidity. Mid abdominal incision and bilateral groin incisions clean dry and intact, covered with surgical dressings, wound VAC is in place EXTREMITIES: No clubbing, no edema, no cyanosis, 2+ pulses and upper and lower extremities. MUSCULOSKELETAL: Muscle strength and tone normal. SPINE: No scoliosis or deformity SKIN: No rashes CENTRAL NERVOUS SYSTEM: Alert and oriented -3. No focal deficits, tone is normal in all 4 extremities. PSYCHIATRIC: Alert and oriented -3. Appropriate affect. Intact judgment and insight. - Labs CBC & Chem 7: 05/27/19 04:28 05/27/19 04:28 Labs: Abnormal Lab Results - Last 24 Hours (Table) 05/27/19 05/27/19 Range/Units 04:28 04:28 RBC 2.90 L (4.30-5.90) m/uL Hgb 10.2 L (13.0-17.5) gm/dL Hct 31.0 L (39.0-53.0) % MCV 106.9 H (80.0-100.0) fL MCH 35.1 H (25.0-35.0) pg Plt Count 123 L (150-450) k/uL Lymphocytes # 0.7 L (1.0-4.8) k/uL Sodium 134 L (137-145) mmol/L Calcium 7.8 L (8.4-10.2) mg/dL Assessment and Plan Plan: #1. Severe peripheral arterial disease, with claudication status post aortobifemoral artery bypass, postoperative day 2. The patient has adequate pulses in the lower extremities obtained by Doppler signal and there are weak but they're palpable. He has clear abdominal wound. Is passing flatus. I think should be able to tolerate liquid diet to be advanced gradually. The patient is also off dopamine. #2. Chronic and ongoing history of smoking, patient carries a 45 years of smoking history, up to 3 packs a day, currently down to half a pack a day #3. Essential hypertension #4. COPD #5 sinus bradycardia currently on dopamine which also has assisted with his heart rate and blood pressure. The patient's outside the blood pressure improved and currently is off dopamine. The sinus bradycardia and hypotension as recovers. Plan Patient is recovering extremely well. Surgical wound site is dry clean and intact. There is adequate Doppler signals in lower extremities bilaterally and there are no ischemic changes. There are also some weak palpable pulses. Often this patient clear liquid diet. Continue using incentive spirometer. The patient is off dopamine. Cut down the IV fluids to 75 mL an hour. We'll co ntinue to follow. Vascular surgery is on the case. He will be sitting up on a chair. We'll continue to follow.
--- NOTE | 2019-05-27 08:22 | P.PN ---
Progress Note - Text Progress Note Date: 05/27/19 Patient without complaints. Pain controlled. Denies leg weakness. Denies headache. Epidural @ 8 ml/hr VSS Back - epidural site clean and dry A/P POD #2 s/p aortobifemoral bypass - doing well
--- NOTE | 2019-05-27 10:08 | P.PN ---
Subjective Progress Note Date: 05/27/19 Patient seen and examined. Overall doing well. No complaints. Abdominal pain is controlled. No real nausea, having some phlegm. Passing flatus. Legs feel better, dopamine has been off since last night at midnight Objective - Vital Signs Vital signs: Vital Signs Temp 98.6 F 05/27/19 08:00 Pulse 75 05/27/19 09:00 Resp 13 05/27/19 09:00 BP 104/62 05/27/19 09:00 Pulse Ox 93 L 05/27/19 09:00 Intake & Output 05/26/19 05/27/19 05/27/19 18:59 06:59 18:59 Intake Total 2061.148 1404.278 250 Output Total 730 1465 120 Balance 1331.148 -60.722 130 Weight 72.8 kg Intake: IV 1725 1375 250 Lactated Ringers 1,000 ml 1625 1375 250 @ 125 mls/hr IV .Q8H [facility] Rx#:[id number] Magnesium Sulfate-D5w Pmx 100 1 gm In Dextrose/Water 1 100ml.bag @ 100 mls/hr IVPB Q1H [facility] Rx#: [id number] Intake, IV Titration 276.148 29.278 Amount DOPamine DRIP 800 mg In 214.681 29.278 Water For Injection 1 250ml.bag @ 5 MCG/KG/MIN 5.911 mls/hr IV .Q24H [facility] Rx#:[id number] Ropivacaine 400 mg 61.467 Hydromorphone (Pf) 5 mg In Sodium Chloride 0.9% 170 ml @ Per Protocol EPIDURAL .Q0M [facility] Rx#: [id number] Oral 60 Output: Urine 730 1465 120 Other: Voiding Method Indwelling Catheter Indwelling Catheter Indwelling Catheter ABP, PAP, CO, CI - Last Documented Arterial Blood Pressure 108/55 - Exam Genitals a pleasant cooperative male in no acute distress. HEENT is normocephalic, atraumatic, glasses, heart is regular in rate and rhythm. Lungs are clear bilaterally. Abdomen soft, nontender nondistended. Incisional wound VAC intact. Extremities are warm and dry. Palpable DP and PT on the right. Palpable DP and weakly palpable PT on the left. Motor sensory intact - Labs CBC & Chem 7: 05/27/19 04:28 05/27/19 04:28 Labs: Abnormal Lab Results - Last 24 Hours (Table) 05/27/19 05/27/19 Range/Units 04:28 04:28 RBC 2.90 L (4.30-5.90) m/uL Hgb 10.2 L (13.0-17.5) gm/dL Hct 31.0 L (39.0-53.0) % MCV 106.9 H (80.0-100.0) fL MCH 35.1 H (25.0-35.0) pg Plt Count 123 L (150-450) k/uL Lymphocytes # 0.7 L (1.0-4.8) k/uL Sodium 134 L (137-145) mmol/L Calcium 7.8 L (8.4-10.2) mg/dL Assessment and Plan Assessment: #1 postop aortobifemoral bypass #2 tobacco abuse #3 bradycardiaresolved, now off dopamine Plan: At this point the patient appears to be doing well. We will continue his epidural for 1 more day. We will get him up to the chair as he is able. We'll continue the [place] catheter until the epidural is removed. He may begin a clear liquid diet today and advance as tolerated.
[2019-05-27] MEDS: PANTOPRAZOLE 40 MG/10 ML VIAL IVP SCH (10:55)
[2019-05-27] MEDS: NICOTINE 21MG/24HR PATCH TRANSDERM SCH (10:55)
[2019-05-27] MEDS: CHLORTHALIDONE 25 MG TAB PO SCH (14:53)
[2019-05-27] MEDS: LISINOPRIL 20 MG TAB PO SCH (14:53)
[2019-05-27] MEDS: ATENOLOL 50 MG TAB PO SCH (14:54)
--- NOTE | 2019-05-27 21:00 | PN ---
PROGRESS NOTE CHIEF COMPLAINT: Status post aortofemoral. HISTORY OF PRESENT ILLNESS: This gentleman is doing well. He has had no shortness of breath, chills, fever, chest pain, etc. His blood pressure has been well controlled and, at times, low. PHYSICAL EXAMINATION: He is awake and alert. Chest is clear. Cardiac exam is normal and dressings are dry. There is apparently a problem with his wound VAC. Extremities are normal and warm. IMPRESSION: 1. Status post aortofemoral bypass. 2. Chronic obstructive pulmonary disease. PLAN: No change in his program. He seems to be doing well. His beta gennaro will be reinstituted. MMODL / IJN: [id number] /
[2019-05-28] MEDS: LACTATED RINGERS 1,000 ML IV SCH (00:05)
[2019-05-28] MEDS: ROPIVACAINE 400 MG, HYDROMORPHONE (PF) 5 MG in SODIUM CHLORIDE 0.9% 170 ML EPIDURAL PRN (00:06)
[2019-05-28] MEDS: ALBUTEROL NEBULIZED 2.5 MG/3 ML INHALATION SCH ×3 (07:35→20:15)
--- NOTE | 2019-05-28 08:05 | P.PN ---
Progress Note - Text Progress Note Date: 05/28/19 Patient without complaints. Minimal discomfort with coughing. Ambulating. Denies leg weakness. Denies headache. Epidural @ 6 ml/hr VSS Epidural site clean and dry A/P POD#3 s/p aortobifemoral bypass - transition to PO analgesia and d/c epidural in preparation for patient discharge
[2019-05-28] MEDS: PANTOPRAZOLE 40 MG/10 ML VIAL IVP SCH (09:33)
[2019-05-28] MEDS: NICOTINE 21MG/24HR PATCH TRANSDERM SCH (09:34)
--- NOTE | 2019-05-28 10:48 | P.PN ---
Subjective Progress Note Date: 05/28/19 Principal diagnosis: Severe peripheral arterial disease, with claudication, status post aortobifem bypass This 59-year-old white male patient of Dr. Cervantes, with past history of COPD, hypertension, peripheral arterial disease, along history of smoking, patient carries a 45 years of smoking history up to 3 packs a day, currently cut back to half a pack daily, who has been experiencing pain and claudication in his lower extremities and was evaluated by vascular surgery. Return Doppler demonstrated aortic occlusion distal to the renal arteries, no surgical intervention was recommended. Today on 05/2019 patient presents for elective aorto bifemoral artery bypass by Dr. Leyva. Patient is seen in the postoperative period in the intensive care unit, he is awake and alert, in no acute distress, other than some mild to moderate nausea, denies any acute distress, no difficulty breathing, currently on 2 L of oxygen with a pulse ox of 99%, afebrile, sinus bradycardia with a rate of 49 BPM, and currently hypotensive with systolic in the 80s and diastolic in the 50s. Mid abdominal incision and bilateral groin incisions are clean dry and intact, covered with the surgical dressing, there is a wound VAC in place. Patient has a epidural catheter in place, and epidural in the form of ropivacaine and Dilaudid infusing. On today's evaluation of 05/26/2019 the patient is looking very well. He underwent aortobifem bypass surgery and the patient has currently postop day #1. Hemodynamically stable. The patient was having sinus bradycardia yesterday and his heart rate at one point dropped as low as low 40s. At that point, I put him on a dopamine infusion which is currently running at 8 g per KG per minute. His most recent BP is 95/39. His heart rate is in the mid 60s and he is sinus. His extremities are warm. He has Doppler signals in all 4 extremities bilaterally. No significant numbness or pain or tingling in his legs bilaterally. Abdominal wound is dry clean and intact. The patient is on room air oxygen. No significant cough or sputum production or chest tightness or wheezing. He has an epidural catheter with Dilaudid and bupivacaine which is running at 80 mL an hour. Feeling slightly nauseous. However, he is requesting for food. He has a Cordis in his right IJ. On today's evaluation of 05/27/2019, the patient has no specific complaints. The blood pressure is under good control. The patient is receiving lactated Ringer at the rate of 1 25 mL an hour. Heart is a sinus and it's in the mid 70s. The patient was taken off the dopamine since midnight. Adequate urine output. Adequate pulses in lower extremities in terms of Doppler signal and some palpable pulses can be also felt. Abdomen is soft. There are bowel sounds. He is passing some gas. No bowel movement yet. He has a congested cough. Limited amount of sputum production. He is on oxygen at 2 L and is pulse oxing 94%. No other significant events overnight. No abdominal pain. Epidural is still running at 6 cc an hour. On 05/28/2019 patient seen in follow-up on selective care unit, is sleeping in bed, in no acute distress, he states he is bringing up some phlegm, he is unable to do the incentive spirometer because it makes him cough, patient was educated on importance of deep breathing and coughing, and sitting up in the chair, patient was up in the chair apparently yesterday, today he states he hasn't slept much and would like to rest. Lung sounds are diminished, no rhonchi, no wheezing, vital signs are stable, currently on 2 L of oxygen with a pulse ox of 89 to 95%, afebrile, hemodynamically stable. Mid abdominal and bilateral groin incisions clean dry and intact, distal pulses are intact, no new labs today. No new chest x-ray. Epidural still running at a rate of 6 ML per hour, and it will be discontinued today. Hogue catheter is in place patient is nonoliguric, no nausea vomiting or diarrhea. Abdomen is soft. Objective - Vital Signs Vital signs: Vital Signs Temp 98.6 F 05/28/19 03:00 Pulse 80 05/28/19 07:52 Resp 18 05/28/19 03:00 BP 132/70 05/28/19 03:00 Pulse Ox 89 L 05/28/19 07:35 Intake & Output 05/27/19 05/28/19 05/28/19 18:59 06:59 18:59 Intake Total 1145 209.4 Output Total 1345 1600 Balance -200 -1390.6 Weight 67.6 kg Intake: IV 925 Lactated Ringers 1,000 ml 925 @ 75 mls/hr IV .[id number] [facility] Rx#:[id number] Intake, IV Titration 100 209.4 Amount Magnesium Sulfate-D5w Pmx 100 1 gm In Dextrose/Water 1 100ml.bag @ 100 mls/hr IVPB Q1H [facility] Rx#: [id number] Ropivacaine 400 mg 209.4 Hydromorphone (Pf) 5 mg In Sodium Chloride 0.9% 170 ml @ Per Protocol EPIDURAL .Q0M PRN Rx#: [id number] Oral 120 Output: Urine 1345 1600 Other: Voiding Method Indwelling Catheter Indwelling Catheter ABP, PAP, CO, CI - Last Documented Arterial Blood Pressure 108/55 - Exam GENERAL EXAM: Alert, pleasant, 59-year-old white male, comfortable in no appare nt distress. HEAD: Normocephalic/atraumatic. EYES: Normal reaction of pupils, equal size. Conjunctiva pink, sclera white. NOSE: Clear with pink turbinates. THROAT: No erythema or exudates. NECK: No masses, no JVD, no thyroid enlargement, no adenopathy. CHEST: No chest wall deformity. Symmetrical expansion. LUNGS: Diminished air entry with no crackles, wheeze, rhonchi or dullness. CVS: Regular rate and rhythm, normal S1 and S2, no gallops, no murmurs, no rubs ABDOMEN: Soft, nontender. No hepatosplenomegaly, normal bowel sounds, no guarding or rigidity. Mid abdominal incision and bilateral groin incisions clean dry and intact, covered with surgical dressings, wound VAC is in place EXTREMITIES: No clubbing, no edema, no cyanosis, 2+ pulses and upper and lower extremities. MUSCULOSKELETAL: Muscle strength and tone normal. SPINE: No scoliosis or deformity SKIN: No rashes CENTRAL NERVOUS SYSTEM: Alert and oriented -3. No focal deficits, tone is normal in all 4 extremities. PSYCHIATRIC: Alert and oriented -3. Appropriate affect. Intact judgment and insight. - Labs CBC & Chem 7: 05/27/19 04:28 05/27/19 04:28 Labs: Microbiology - Last 24 Hours (Table) 05/26/19 19:30 Gram Stain - Preliminary Sputum Sputum Culture - Preliminary Assessment and Plan Plan: Assessment: #1. Severe peripheral arterial disease, with claudication status post aortobifemoral artery bypass, postoperative day 3 #2. Chronic and ongoing history of smoking, patient carries a 45 years of smoking history, up to 3 packs a day, currently down to half a pack a day #3. Essential hypertension #4. COPD Plan: Encouraged the patient to sit up in the chair, increase activity, encouraged to deep breathe and cough, continue with nebulized bronchodilators. Vital signs are stable, no acute issues overnight. Anticipate removal of the epidural catheter, and transitioning to oral pain medications, abdomen is soft, incisions are clean dry and intact, distal pulses are palpable. Tolerating a diet, no nausea vomiting or diarrhea. Continue with nebulized treatments I performed a history & physical examination of the patient and discussed their management with my nurse practitioner, Angela Barron. I reviewed the nurse practitioner's note and agree with the documented findings and plan of care. Lung sounds are positive for clear breath sounds. The findings and the impression was discussed with the patient. I attest to the documentation by the nurse practitioner. Time with Patient: Less than 30
--- NOTE | 2019-05-28 11:37 | P.PN ---
Subjective Progress Note Date: 05/28/19 Principal diagnosis: Status post aortobifemoral bypass grafting Patient is evaluated today postop day #3 status post aortobifemoral bypass grafting. The patient is tolerating liquids well. He still has his epidural catheter and Hogue catheter in place. Orders have been entered asking for the epidural to be removed followed a few hours later by the Hogue catheter. Examination revealed surgical wound to be clean, dry and healing normally. Abdomen is soft and benign. Pedal pulses are intact bilaterally. There is no leg edema. Intake & Output 05/26/19 05/27/19 05/28/19 05/29/19 06:59 06:59 06:59 06:59 Intake Total 7969.450 3465.426 1354.4 Output Total 2415 2195 2945 Balance 5554.450 1270.426 -1590.6 Weight 72.4 kg 72.8 kg 67.6 kg Most recent lab results Calcium 7.8 mg/dL (8.4-10.2) L 05/27/19 04:28 Magnesium 1.6 mg/dL (1.6-2.3) 05/28/19 05:36 PT/INR, D-dimer PT 10.7 sec (9.0-12.0) 05/25/19 07:04 INR 1.0 (<1.2) 05/25/19 07:04 Impression: Status post aortobifemoral bypass grafting postop day #3. #2: History of tobacco use. #3: COPD. Plan: #1: Removal of epidural catheter with conversion to oral analgesics. #2: Removal of Hogue catheter a few hours after epidural catheter has been removed. #3: Begin physical therapy. The patient may require subacute rehab pending recommendations of physical therapy/occupational therapy. Objective - Vital Signs Vital signs: Vital Signs Temp 98.0 F 05/28/19 08:00 Pulse 69 05/28/19 08:00 Resp 19 05/28/19 08:00 BP 141/74 05/28/19 08:00 Pulse Ox 93 L 05/28/19 08:00 Intake & Output 05/27/19 05/28/19 05/28/19 18:59 06:59 18:59 Intake Total 1145 209.4 Output Total 1345 1600 Balance -200 -1390.6 Weight 67.6 kg Intake: IV 925 Lactated Ringers 1,000 ml 925 @ 75 mls/hr IV .[id number] [facility] Rx#:[id number] Intake, IV Titration 100 209.4 Amount Magnesium Sulfate-D5w Pmx 100 1 gm In Dextrose/Water 1 100ml.bag @ 100 mls/hr IVPB Q1H [facility] Rx#: [id number] Ropivacaine 400 mg 209.4 Hydromorphone (Pf) 5 mg In Sodium Chloride 0.9% 170 ml @ Per Protocol EPIDURAL .Q0M PRN Rx#: [id number] Oral 120 Output: Urine 1345 1600 Other: Voiding Method Indwelling Catheter Indwelling Catheter ABP, PAP, CO, CI - Last Documented Arterial Blood Pressure 108/55 - Labs CBC & Chem 7: 05/27/19 04:28 05/27/19 04:28 Labs: Microbiology - Last 24 Hours (Table) 05/26/19 19:30 Gram Stain - Preliminary Sputum Sputum Culture - Preliminary
[2019-05-28] MEDS: LISINOPRIL 20 MG TAB PO SCH (12:31)
[2019-05-28] MEDS: CHLORTHALIDONE 25 MG TAB PO SCH (12:31)
[2019-05-28] MEDS: ATENOLOL 50 MG TAB PO SCH (12:31)
--- NOTE | 2019-05-28 17:53 | PN ---
PROGRESS NOTE CHIEF COMPLAINT: Status post aortofemoral bypass procedure. HISTORY OF PRESENT ILLNESS: This gentleman is currently asleep. He has been stable. PHYSICAL EXAMINATION: His chest is clear. Cardiac exam is normal. Peripheral circulation is adequate. IMPRESSION: 1. Aortoiliac occlusive disease. 2. Atherosclerotic cardiovascular disease. 3. Chronic obstructive pulmonary disease. PLAN: Continue to follow with Vascular Surgery. MMODL / IJN: [id number] /
[2019-05-28] MEDS ORDERED: traZODone HCL 50 MG TAB PO PRN (20:32)
[2019-05-28] MEDS ORDERED: ARTIFICIAL TEARS-HYPROMELLOSE DROPS 15 ML BTL BOTH EYES PRN (20:34)
[2019-05-28] MEDS ORDERED: DOCUSATE 100 MG CAP PO SCH (21:00)
[2019-05-28] MEDS: HYDROcodone/APAP 7.5-325MG 1 EACH TAB PO PRN (21:29)
[2019-05-29] MEDS: LACTATED RINGERS 1,000 ML IV SCH (00:29)
[2019-05-29 04:51] VITALS: TEMP 98.6
[2019-05-29] MEDS: ALBUTEROL NEBULIZED 2.5 MG/3 ML INHALATION SCH ×2 (07:14→11:12)
[2019-05-29 08:21] VITALS: BP 156/91; RESP 18
[2019-05-29] MEDS: NICOTINE 21MG/24HR PATCH TRANSDERM SCH (08:35)
[2019-05-29] MEDS: PANTOPRAZOLE 40 MG/10 ML VIAL IVP SCH (08:35)
[2019-05-29] MEDS: HYDROcodone/APAP 7.5-325MG 1 EACH TAB PO PRN (08:36)
--- NOTE | 2019-05-29 08:54 | P.PN ---
Subjective Progress Note Date: 05/29/19 Patient seen and examined sitting up in bed eating breakfast. Patient reports epidural catheter was removed yesterday followed by a Hogue catheter. He's been he's been up ambulating had positive void and stool. Patient states he is ready to be discharged home today. Pain is well controlled. Objective - Vital Signs Vital signs: Vital Signs Temp 98.6 F 05/29/19 08:00 Pulse 62 05/29/19 08:00 Resp 18 05/29/19 08:00 BP 156/91 05/29/19 08:00 Pulse Ox 95 05/29/19 08:00 Intake & Output 05/28/19 05/29/19 05/29/19 18:59 06:59 18:59 Output Total 3200 3875 Balance -3200 -3875 Weight 65 kg Output: Urine 3200 3875 Uretheral (Hogue) 3500 Other: Voiding Method Indwelling Catheter Toilet Urinal # Voids 1 ABP, PAP, CO, CI - Last Documented Arterial Blood Pressure 108/55 - Exam General appearance: The patient is alert, oriented, in no acute distress. HET: Head is normocephalic and atraumatic. Pupils are equal and reactive. Oropharynx is clear without lesions. Neck: Supple without lymphadenopathy. Trachea midline. Heart: S1 S2. Regular rate and rhythm. Lungs: No crackles or wheezes are heard. Abdomen: Soft, nontender, nondistended with bowel sounds. No peritoneal signs. No palpable organomegaly or masses. Incision with Kane clean dry and intact Extremities: Normal skin color and turgor. No cyanosis, rash, ulceration, clubbing, or edema. Positive DP and TP bilaterally. Neurological: No focal deficits. Strength and sensation are grossly intact. - Labs CBC & Chem 7: 05/27/19 04:28 05/27/19 04:28 Labs: Microbiology - Last 24 Hours (Table) 05/26/19 19:30 Gram Stain - Final Sputum Sputum Culture - Final Klebsiella oxytoca Haemophilus influenzae Assessment and Plan Assessment: #1 postop aortobifemoral bypass #2 tobacco abuse 3 bradycardia-resolved, now off dopamine Plan: Patient okay for discharge today. Patient to follow-up with Dr. Leyva in office in 2 weeks. Patient instructed may shower no tub baths or strenuous activity. The above dictated assessment and findings were discussed with Dr. Leyva. The impression and plan of care have been directed as dictated.
[2019-05-29 11:30] VITALS: PULSE 68
[2019-05-29] MEDS: CHLORTHALIDONE 25 MG TAB PO SCH (11:56)
[2019-05-29] MEDS: ATENOLOL 50 MG TAB PO SCH (11:56)
[2019-05-29] MEDS: LISINOPRIL 20 MG TAB PO SCH (11:56)
--- NOTE | 2019-05-29 18:50 | PN ---
PROGRESS NOTE CHIEF COMPLAINT: Status post aortofemoral bypass. HISTORY OF PRESENT ILLNESS: This gentleman is doing fairly well. He is awake and alert. He has had no chest pain, fever, chills, abdominal pain, etc. PHYSICAL EXAMINATION: Color is good. His chest is clear. Cardiac exam is normal. Bowel sounds are heard and dressings are dry. Feet are warm with good pulses. IMPRESSION: 1. Status post aortofemoral bypass for ASCVD. 2. Chronic obstructive pulmonary disease. PLAN: He will probably be going home today. MMODL / IJN: [id number] /
--- NOTE | 2019-05-30 10:05 | CDI ---
Documentation Clarification Form Date: 05/30/2019 8:46:00 AM From: Alicia Freedman RN, CCDS Admit Date: 05/25/2019 6:44:00 AM Patient Name: Medhat Hendrix Visit Number: [id number] Discharge Date: 05/29/2019 1:28:00 PM ATTENTION: The Clinical Documentation Specialists (CDI) and [facility] Coding Staff appreciate your assistance in clarifying documentation. Please respond to the clarification below the line at the bottom and electronically sign. The CDI & [facility] Coding staff will review the response and follow-up if needed. Please note: Queries are made part of the Legal Health Record. If you have any questions, please contact the author of this message via ITS. Dr. Paramjit Leyva Hypotension is documented in the consults and progress notes beginning on 05/25/19 and additional clarification is needed. Patients Admitting Diagnosis: Carlos classification 4 with Aortoiliac occlusion Post-Operative Diagnosis: Same Procedure performed: Aortobifemoral artery bypass History/Risk Factors: Peripheral vascular disease, Hypertension, Tobacco use Clinical Indicators: 59 year-old male present for elective aorto bifemoral artery bypass. It was documented by pulmonary that the patient was sinus bradycardia with a rate of 49 BPM, and currently hypotensive with systolic in the 80's and diastolic in the 50's 05/25/19: 85/61 44 17, 86/64 52 12, 84/56 48 11, 85/61 42 15 Pulmonary (Dr. Barton): 05/25/19 Sinus mechanism bradycardic, and hypotensive, but awake and alert, and clinically asymptomatic, urine output is adequate. 05/26/19 Pulmonary: Sinus bradycardia currently on dopamine which also has assisted with his rate and blood pressure. Treatment: Dopamine IV (start 05/25, DC 05/27) Hemodynamic monitoring of vital signs IV Fluids at 125mL hour In order to accurately reflect this patients severity of illness, please clarify if the hypotension diagnosis is: Hypotension clinically significant, monitored and treated for this hospital stay. Hypotension not clinically significant Other, please specify Unable to determine (Last Revision: October 2018) Hypotension not clinically significant- asymptomatic MTDD
--- NOTE | 2019-05-30 10:46 | CDI ---
Documentation Clarification Form Date: 05/30/2019 10:06:18 AM From: Alicia Freedman RN, CCDS Admit Date: 05/25/2019 6:44:00 AM Patient Name: Medhat Hendrix Visit Number: [id number] Discharge Date: 05/29/2019 1:28:00 PM ATTENTION: The Clinical Documentation Specialists (CDI) and [facility] Coding Staff appreciate your assistance in clarifying documentation. Please respond to the clarification below the line at the bottom and electronically sign. The CDI & [facility] Coding staff will review the response and follow-up if needed. Please note: Queries are made part of the Legal Health Record. If you have any questions, please contact the author of this message via ITS. Dr. Paramjit Leyva Bradycardia is documented in the consult and ongoing progress notes and further clarification is needed. Patients Admitting Diagnosis: Carlos classification 4 with Aortoiliac occlusion Post-Operative Diagnosis: Same Procedure performed: Aortobifemoral artery bypass History/Risk Factors: Peripheral vascular disease, Hypertension, Tobacco use Clinical Indicators: 59-year-old male present for elective aortobifemoral artery bypass on 05/25/19. In the postoperative period sinus bradycardia with a rate of 49 BPM and was hypotensive. Pulmonary consult: Patient in sinus mechanism bradycardic, and hypotensive but awake and alert, and clinically asymptomatic 05/26/19 Dr. Leyva: He did have a bout of bardycardia witch was treated with dopamine and his heart rate is in the 60,s. bradycardia resolved. Vital signs: 05/25/19: 85/61 44 17, 86/64 52 12, 84/56 48 11, Treatment: Hemodynamic monitoring of vital signs Dopamine IV IV Fluids @125 mL hour In order to accurately reflect this patients severity of illness, please clarify if the bradycardia diagnosis is: An expected post-procedural or post-surgical condition An unexpected post-procedural or post-surgical condition related to surgical care (a complication of care) An unexpected post-procedural or post-surgical condition, related to the patients underlying medical comorbidities Other, please specify ____ Unable to determine (Last Revision: October 2018) expected condition due to history of bradycardia MTDD
== END 2019-05-29 13:28 | disposition home health service (06) | DRG 271 ==
LOC: 2ORMAIN 06:44 → 2SICU 14:08 → 3SCARD 05-27 12:45
PROVIDERS: ADMIT Surgery; ATTEND Surgery
PROC: 04CL0ZZ Extirpation of Matter from Left Femoral Artery, Open Approach (ICD-10-PCS; 2019-05-25)
PROC: 04CK0ZZ Extirpation of Matter from Right Femoral Artery, Open Approach (ICD-10-PCS; 2019-05-25)
PROC: 04100JK Bypass Abdominal Aorta to Bilateral Femoral Arteries with Synthetic Substitute, Open Approach (ICD-10-PCS; principal; 2019-05-25 07:30)
DX: I70.213 Atherosclerosis of native arteries of extremities with intermittent claudication, bilateral legs (principal); I74.09 Other arterial embolism and thrombosis of abdominal aorta; I10 Essential (primary) hypertension; F17.210 Nicotine dependence, cigarettes, uncomplicated; I25.10 Atherosclerotic heart disease of native coronary artery without angina pectoris; J44.9 Chronic obstructive pulmonary disease, unspecified; R00.1 Bradycardia, unspecified; Z79.1 Long term (current) use of non-steroidal anti-inflammatories (NSAID); Z79.82 Long term (current) use of aspirin; Z79.899 Other long term (current) drug therapy
CPT/HCPCS: 80048; 80053; 83735; 85025; 85027; 85610; 86850; 86891; 86900; 86901; 87070; 87077; 87186; 87205; 88304; 88305; 88311; 94640; 94760